=== PATIENT | female | born 1965 | race Caucasian/White ===

== ENCOUNTER 2017-03-01 12:37 | Emergency (ER) | payer OTHER ==
[~2017-03-01] VITALS: Ht 152.4 cm; Wt 53.2 kg
[2017-03-01 12:43] VITALS: BP 136/92; PULSE 89; RESP 16; O2SAT 100
--- NOTE | 2017-03-01 13:30 | ED.REPORT ---
HPI-General Illness Date of Service Mar 01, 2017 ED Provider: Bob Antuenz DO The pt is a 51 y/o female w/ a hx of 2 C-sections presenting to the ED complaining of L sided abdominal pain. She is also experiencing L flank pain, hematuria, and vomited early this morning. She reports the abdominal pain beginning 3 days ago, being fine 2 days ago until she ate, which caused the pain to return. The pain was intermittent yesterday and constant today. Denies diarrhea, dysuria, or SOB. Nursing Notes Stated Complaint: STOMACH AND BACK PAIN Chief Complaint: Female Abdominal Pain Nursing Notes Reviewed: Yes Allergies: Coded Allergies: No Known Allergies (Unverified , 03/01/17) Scheduled PRN Naproxen (Naproxen) 500 Mg Tab 500 MG PO BID PRN PRN For Pain Ondansetron ODT (Zofran ODT) 4 Mg Tablet 4 MG PO Q4H PRN PRN For Nausea General Time Seen by MD: 13:30 Chief Complaint Abdominal pain (L sided ) Hx Obtained From: Patient Arrived By: Walk-in Onset Occurred: 3 days ago Symptom Duration: Intermittent Recent Healthcare: No recent doctor visit, No recent hospitalization Similar Sx Previous: No Past Medical History Past Medical History None reported Past Surgical History 2 C-sections Smoking History Never Smoker Social History Alcohol Use: "Social" Drug Use: Denies drug use Other Social History: Good social support Ambulatory Status Independent Review of Systems Full Review of Systems Respiratory: Denies: Shortness of breath GI: Reports: Abdominal pain (L sided ), Vomiting, Denies: Diarrhea Female: Reports: Flank pain (L sided ), Hematuria, Denies: Dysuria Complete sys rev & neg: except as marked. Physical Exam Vital Signs Vital Signs Date Time Temp Pulse Resp B/P Pulse Ox O2 Delivery O2 Flow Rate FiO2 03/01/17 12:43 37.1 89 16 136/92 100 Room Air Initial VS: Reviewed Head / Eyes: Atraumatic, Normocephalic, PERRL ENT: Mucous membranes moist, Conjunctiva normal, No scleral icterus Neck: Supple, Non-tender, Full range of motion Respiratory: Breath sounds normal, Clear to auscultation, No respiratory distress Cardiovascular: Regular rate & rhythm, Heart sounds normal, Intact distal pulses Extremities: Vascular intact, Neuro intact, No swelling, No tenderness Skin: Warm, Dry, No cyanosis Neurologic: Alert, Oriented, Nonfocal Psychiatric: Mood/affect normal, Behavior normal, Normal thought content General/Constitutional: Awake, Alert Distress / Hydration: Positive: Distress moderate Restless Tenderness/Guarding/Rebound: Positive: Tender LUQ... (Mild) Flank / Spine / Paraspinal: Positive: Flank tender L Interpretation & Diagnostics PROCEDURE: CT KUB ([id number]) IMPRESSION: Impacted 2 mm far distal left ureteral stone producing mild to moderate right hydronephrosis and hydroureter to that level. No additional urinary tract stones seen. Dictated by: Sriram Yeager M.D. on 03/01/2017 at 14:08 Approved by: Sriram Yeager M.D. on 03/01/2017 at 14:10 Lab Results Interpretation Result Diagram: 03/01/17 1401 03/01/17 1401 Test 03/01/17 12:56 03/01/17 14:01 Urine Color Straw (YELLOW) Urine Appearance Hazy (CLEAR,HAZY) Urine pH 5.5 (5.0-8.0) Urine Specific [place] 1.020 (1.003-1.035) Urine Protein Negativemg/dL (NEG,TRACE) Urine Glucose (UA) Negativemg/dL (NEGATIVE) Urine Ketones 40mg/dL (NEGATIVE) Urine Occult Blood Negative (NEGATIVE) Urine Nitrite Negative (NEGATIVE) Urine Bilirubin Negative (NEGATIVE) Urine Urobilinogen Normalmg/dL (NORMAL) Urine Leukocyte Esterase Small (NEGATIVE) Urine RBC 0-2/hpf (0-2) Urine WBC 6-10/hpf (0-5) Urine Epithelial Cells Occasional/hpf (NONE-MOD) Urine Crystals None seen (NONE SEEN) Urine Bacteria Few/hpf (NONE-FEW) Urine Hyaline Casts None/lpf (NONE) Urine Granular Casts None seen (NONE SEEN) Urine Waxy Casts None seen (NONE SEEN) Urine Red Blood Cell Casts None seen (NONE SEEN) Urine White Blood Cell Casts None seen (NONE SEEN) Urine Mucus None seen (None Seen) Urine Trichomonas None seen (NONE SEEN) Urine Yeast None (NONE SEEN) Urinalysis Comment None Urine Culture Reflexed Indicated Hold Urine Received (Received) White Blood Count 8.4th/mm3 (3.8-10.1) Red Blood Count 4.35mil/mm3 (3.90-5.20) Hemoglobin 12.7g/dL (12.0-15.6) Hematocrit 37.2% (35.0-46.0) Mean Corpuscular Volume 85.5fL (81-100) Mean Corpuscular Hemoglobin 29.2pg (27.0-35.0) Mean Corpuscular Hemoglobin Concent 34.1% (32.0-37.0) Red Cell Distribution Width 12.3% (12.3-15.4) Platelet Count 212bil/L (150-400) Neutrophils (%) (Auto) 69.5% (40-74) Lymphocytes (%) (Auto) 17.8% (14-46) Monocytes (%) (Auto) 12.1% (4-12) Eosinophils (%) (Auto) 0.1% (0-5) Basophils (%) (Auto) 0.1% (0-3) Sodium Level 138mEq/L (134-144) Potassium Level 4.2mEq/L (3.5-5.2) Chloride Level 105mEq/L (97-108) Carbon Dioxide Level 18mmol/L (18-29) Blood Urea Nitrogen 19mg/dL (6-24) Creatinine 0.72mg/dL (0.57-1.00) Estimat Glomerular Filtration Rate 123mL/min (>59) Glucose Level 96mg/dL (60-99) Calcium Level 11.4mg/dL (8.5-10.1) Magnesium Level 2.1mg/dL (1.6-2.6) Total Bilirubin 0.7mg/dL (0.0-1.2) Aspartate Amino Transf (AST/SGOT) 18U/L (0-50) Alanine Aminotransferase (ALT/SGPT) 13U/L (0-32) Alkaline Phosphatase 72U/L (25-150) Total Protein 7.2g/dL (6.4-8.4) Albumin 4.3g/dL (3.4-5.0) Lipase 26U/L (13-60) Re-Eval/Medical Decision Med Decision/Clinical Course Findings of a small kidney stone. Initial differential diagnosis included peptic ulcer disease pancreatitis, gallstone pancreatitis, kidney stones, colitis, electrolyte abnormality. Pain significantly improved after Toradol. Patient will be discharged with naproxen and Zofran. Return and follow-up precautions given Time of Eval: 14:42 Re-Evaluation/Progress Note: Pt rechecked. Informed pt of plan for treatment. Pt understands and agrees with plan for treatment. F/U instructions and RTER warnings given. All questions addressed. Counseled Regarding: Diagnosis, Lab results, Need for follow-up, When/why to return to ED Discharge & Departure Primary Impression: Kidney stone on left side Disposition: Home Discharge Condition All VS Reviewed: Yes Condition: Stable Additional Instructions: Thank for you entrusting us with your care today. Your CT showed that you have a kidney stone. Please take the Naproxen for the pain and the Zofran as needed for any nausea you experience. You can use the strainer we will give you to try and catch the stone so it can be examined further. Follow up with the urologist if the pain does not go away on its own. Please return to the emergency department if you think you are developing any further stones or experience any new or worsening symptoms I hope you feel better soon. Referrals: Malia Boone MD (PCP) [facility], [facility] Portions of this note were transcribed by Abdoul Jacobs. I, Dr. Antunez personally performed the history, physical exam and medical decision-making; I reviewed and confirmed the accuracy of the information in the transcribed note. copies to: Malia Boone MD; [facility], Bob Pressley DO Mar 01, 2017 13:30 Abdoul Jacobs Mar 01, 2017 13:43
[2017-03-01] MEDS ORDERED: Ketorolac 15 mg/mL Inj IVPUSH ONE (13:40)
[2017-03-01] MEDS ORDERED: Ondansetron 2 mg/mL 2 mL Inj IVPUSH PRN (13:40)
[2017-03-01 14:04] LABS: APPEARANCE,URINE HAZY (CLEAR,HAZY); COLOR,URINE STRAW (YELLOW); OCCULT BLOOD,URINE NEGATIVE (NEGATIVE); PH,URINE 5.5 (5.0-8.0); UROBILINOGEN,URINE NORMAL (NORMAL)
[2017-03-01 14:09] LABS: BASOPHILS % (AUTO) 0.1 % (0-3); EOSINOPHILS % (AUTO) 0.1 % (0-5); MONOCYTES % (AUTO) 12.1 % (4-12); Mean Corpuscular Hemoglobin 29.2 pg (27.0-35.0); Mean Corpuscular Volume 85.5 fL (81-100); NEUTROPHILS % (AUTO) 69.5 % (40-74); Platelet Count 212 bil/L (150-400)
--- NOTE | 2017-03-01 14:12 | DRSVH ---
PROCEDURE: CT KUB ([id number]) INDICATIONS: Left-sided flank pain. TECHNIQUE: Noncontrast 5 mm thick sections acquired from the diaphragms to the symphysis. 5 mm thick coronal an d sagittal reformats were then performed. For radiation dose reduction, the following was used: aut omated exposure control, adjustment of mA and/or kV according to patient size. COMPARISON: None. FINDINGS: Image quality: Excellent. Lung bases: Lung bases are clear. Heart size is normal. Urinary system: Both kidneys are normal in size. No kidney stones. No right-sided hydronephrosis o r perinephric fat stranding but there is mild left hydronephrosis and hydroureter extending inferiorl y to the bladder level where an impacted 2 mm calculus can be seen at the bladder margin. The right ureter appears non-dilated throughout th its eir expected course. Bladder wall thickness is normal; no calcified bladder stones. Other solid organs: Liver and spleen are normal in size. Gallbladder appears normal. Pancreas is n ormal in contours. No adrenal nodules. Peritoneum and bowel: Unenhanced bowel loops demonstrate normal wall thickness and caliber. No free fluid or air. Nodes and vessels: No retroperitoneal or mesenteric adenopathy by size criteria. Aorta and inferior vena cava are normal in caliber. Abdominal wall: No ventral hernias. Pelvis: No free pelvic fluid. No inguinal hernias or adenopathy. Bones: No suspicious bony lesions. No vertebral body compression fractures. IMPRESSION: Impacted 2 mm far distal left ureteral stone producing mild to moderate right hydronephro sis and hydroureter to that level. No additional urinary tract stones seen. Dictated by: Sriram Yeager M.D. on 03/01/2017 at 14:08 Approved by: Sriram Yeager M.D. on 03/01/2017 at 14:10
[2017-03-01 14:33] LABS: Magnesium 2.1 mg/dL (1.6-2.6)
[2017-03-01] MEDS ORDERED: ONDA4TAB9 PO (14:52)
[2017-03-01] MEDS ORDERED: NPR500T PO (14:52)
[2017-03-01 15:33] VITALS: BP 115/70; PULSE 70; RESP 16; O2SAT 100
== END 2017-03-01 15:35 | disposition home or self-care (01) ==
LOC: SED 12:37
DX: N20.0 Calculus of kidney (principal)
CPT/HCPCS: 36415; 74176; 80053; 81000; 81002; 83690; 83735; 85025; 87086; 87088; 96361; 96374; 96375; 99285; J1885; J2405